=== PATIENT | male | born 1945 | race Caucasian/White ===

== ENCOUNTER 2017-07-23 12:18 | Emergency (ER) | payer MEDICARE, BC ==
[2017-07-23 12:34] VITALS: BP 141/83
[2017-07-23] MEDS ORDERED: DOXYcycline CAP(*) 100 MG PO ONE (13:26)
--- NOTE | 2017-07-23 13:28 | UC ---
Skin Complaint HPI - HPI Summary HPI Summary: 71 y/o male with tick bite to R arm x ? 30 hours. Paitent brought tick in with him- tick was hurt during removal, but consistent with deer nymph tick. redness around area, no prior lyme h/o. has surgery in 1 week, concerned about delay. - History of Current Complaint Chief Complaint: UCSkin Time Seen by Provider: 07/23/17 13:20 Stated Complaint: TICK BITE Hx Obtained From: Patient Onset/Duration: Sudden Onset, Lasting Hours Skin Exposure Onset/Duration: Days Ago Onset Severity: Mild Current Severity: None Pain Intensity: 0 Pain Scale Used: 0-10 Numeric - Allergy/Home Medications Allergies/Adverse Reactions: Allergies Allergy/AdvReac Type Severity Reaction Status Date / Time ciprofloxacin [From Cipro] Allergy Airway Verified 07/23/17 12:33 Obstruction Review of Systems Constitutional: Negative Skin: Rash Neurovascular: Negative Musculoskeletal: Negative Is Patient Immunocompromised?: No All Other Systems Reviewed And Are Negative: Yes PMH/Surg Hx/FS Hx/Imm Hx Previously Healthy: Yes - Surgical History Surgical History: Yes Surgery Procedure, Year, and Place: HERNIA REPAIR A CHILD. CYSTO, STENT 2011 [facility] [place]. hernia 2014, [facility] [place] - Social History Alcohol Use: Weekly Alcohol Amount: 2-3 WEEK Substance Use Type: None Smoking Status (MU): Never Smoked Tobacco Physical Exam Triage Information Reviewed: Yes Appearance: Well-Appearing, No Pain Distress, Well-Nourished Vital Signs: Initial Vital Signs Temp 98.0 F 07/23/17 12:30 Pulse 66 07/23/17 12:30 Resp 18 07/23/17 12:30 BP 141/83 07/23/17 12:30 Pulse Ox 98 07/23/17 12:30 Vital Signs Reviewed: Yes Eye Exam: Normal Neurological Exam: Normal Psychological Exam: Normal Skin: Positive: Other - Additional Comments small round pink/ erythematous area approximately 1.5cm on prox forearm. non- tender, no warmth, drainage. tick appeared full y removed, head intact. Course/Dx - Course Course Of Treatment: tick bite, doxy 1 dose given prophly. - Diagnoses Provider Diagnoses: tick bite, possible lyme exposure Discharge - Sign-Out/Discharge Documenting (check all that apply): Discharge - Discharge Plan Condition: Good Disposition: HOME Patient Education Materials: Doxycycline (By mouth), Lyme Disease (ED), Tick Bite (ED) Referrals: Joseph Garrett MD [Primary Care Provider] - Additional Instructions: - Continue to monitor area for redness , "bulls-eye" rash - Doxycycline given at - Billing Disposition and Condition Condition: GOOD Disposition: HOME
== END 2017-07-23 13:36 | disposition home or self-care (01) ==
LOC: UCEAST 12:18
DX: S50.861A Insect bite (nonvenomous) of right forearm, initial encounter (principal); W57.XXXA Bitten or stung by nonvenomous insect and other nonvenomous arthropods, initial encounter; Y93.9 Activity, unspecified; Y92.9 Unspecified place or not applicable; Z88.1 Allergy status to other antibiotic agents
CPT/HCPCS: 99212; A9270-GY; G0463

== ENCOUNTER 2017-07-25 06:35 | Day surgery (SDC) | payer MEDICARE, BC ==
--- NOTE | 2017-07-22 19:59 | HP ---
CC: Joseph Garrett MD, Family Medicine * ADMISSION HISTORY AND PHYSICAL: DATE OF ADMISSION: 07/25/17 ATTENDING SURGEON: Dr. Jt Black.* (DICTATED BY ALISON ANDRE) CHIEF COMPLAINT: Right inguinal hernia. HISTORY OF PRESENT ILLNESS: This is a generally healthy 71-year-old male who presents with a right inguinal hernia. This has been present for at least the past 10 years and has always been asymptomatic, though has gradually increased in size. He had undergone repair of a right inguinal hernia as a child and more recently in 2014, underwent open repair of a left inguinal hernia with mesh by Dr. Black. He was evaluated most recently by Dr. Black on 03/05/17, at which time exam confirmed the presence of a moderately large right inguinal hernia which is reducible though with a bit of difficulty, no evidence of recurrence on the left, well-healed incision on the right side consistent with prior hernia repair as a child. The patient has not had any symptoms to suggest incarceration or strangulation. Dr. Black has discussed with him the indications for surgery, the risks, benefits, and alternatives and we have reviewed the expected perioperative course. He would like to proceed as scheduled with open repair of right inguinal hernia with mesh. PAST MEDICAL HISTORY: Uric acid renal stones (followed regularly by Dr. Stover), erectile dysfunction, insomnia (primarily with traveling). PAST SURGICAL HISTORY: Previous surgeries include right inguinal herniorrhaphy as noted above, left inguinal herniorrhaphy with mesh in 2014, transurethral extraction of kidney stones in 2011 with stent placement and subsequent removal. CURRENT MEDICATIONS: 1. Allopurinol 300 mg once daily. 2. Potassium citrate extended release 10 mEq b.i.d. 3. Tamsulosin 0.4 mg daily. 4. Levitra 20 mg daily p.r.n. 5. Temazepam 15 mg q.h.s. p.r.n. insomnia. 6. The patient also has both Qvar and albuterol MDIs which he uses only with the congregation of upper respiratory infection. ALLERGIES: CIPRO (difficulty breathing). FAMILY HISTORY: Negative for anesthesia problems, bleeding or clotting disorders. SOCIAL HISTORY: The patient is . 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 He denies use of tobacco. He drinks 2 to 3 drinks per week. REVIEW OF SYSTEMS: General: No recent constitutional symptoms or acute illnesses. He is generally fairly active. Eyes: No recent changes in vision. Ears, Nose, Throat: No problems reported. Cardiovascular: Apparently history of rheumatic fever as a child and murmur, but not noted regularly on recent exams. Respiratory: He was treated for pneumonia 2 years ago and has been advised since then to utilize the above inhaled corticosteroid and bronchodilator p.r.n. for upper respiratory infections. He did use these approximately 1 month ago with resolution of his symptoms. GI: No problems reported. Colonoscopy done within the past 5 years with no problems reported at that time or in the interim. : As noted above, he does have some reduced stream and nocturia. He is followed by Dr. Stover regularly. Endocrine: No diabetes or thyroid dysfunction. Musculoskeletal, Neurological, Integument, Immunological: No additional problems reported. PHYSICAL EXAMINATION GENERAL: Well-nourished, well-developed male, in no acute distress. VITAL SIGNS: Height 5 feet 5.5 inches, weight 168 pounds, temperature 97.9, blood pressure 130/72, pulse 66, respirations 18. HEENT: Pupils equal, round, and reactive. EOMs intact. No conjunctival pallor. Oropharynx: Teeth in good repair. No intraoral lesions. NECK: No lymphadenopathy, thyromegaly, or masses. LUNGS: Clear to auscultation. No rales or wheezes. HEART: Regular rate and rhythm. No murmur appreciated on today's exam. ABDOMEN: Soft, nontender to palpation. No palpable masses or organomegaly. He does have diastasis recti. Hernia is not reexamined (see above per Dr. Black's exam. No interval problems reported). GENITALIA: Not examined. RECTAL: Not done. BACK: No spinous process or CVA tenderness. EXTREMITIES: No edema. NEUROLOGICAL: Grossly intact. SKIN: Warm and dry. No suspicious rashes or lesions noted. IMPRESSION: Right inguinal hernia. PLAN: Open repair right inguinal hernia with mesh. ALISON ANDRE [id number]/[facility] #: [id number] [facility] CAN[facility]ER CENTERLinda
[~2017-07-25 06:35] MED LIST: Buffered Lidocaine 0.9% SYRIN* 5 ML/SYR SYRINGE INTRADERM ONE
[2017-07-25] MEDS ORDERED: Buffered Lidocaine 0.9% SYRIN* 5 ML/SYR SYRINGE ONE (07:09)
[2017-07-25] MEDS ORDERED: ceFAZolin 2 GM PREMIX (*) 2 GM/50 ML BAG IVPB ONE (07:09)
[2017-07-25] MEDS ORDERED: Midazolam* 1 MG/ML 2 ML VIAL (2 MG) ONE ×3 (08:09→09:00)
[2017-07-25] MEDS ORDERED: fentaNYL* 50 MCG/ML 2 ML VIAL (100 MCG VIAL) ONE ×2 (08:09→09:10)
[2017-07-25] MEDS ORDERED: Lidocaine 1% MPF wEPI 200,000* 30 ML SDV ONE (08:49)
[2017-07-25] MEDS ORDERED: Bupivacaine 0.25% SDV* 30 ML ONE (08:50)
[2017-07-25] MEDS ORDERED: Propofol* 10 MG/ML 20 ML BTL IV PUSH ONE (08:59)
[2017-07-25] MEDS ORDERED: Ketorolac INJ* 30 MG/ML 1 ML VIAL ONE (08:59)
[2017-07-25] MEDS ORDERED: Dexamethasone IV* 4 MG/ML 1 ML (4 MG) ONE (08:59)
[2017-07-25] MEDS ORDERED: Lidocaine 2% PF * 5 ML VIAL ONE (09:01)
[2017-07-25] MEDS ORDERED: Ondansetron INJ* 2 MG/ML VIAL IV PRN (09:27)
[2017-07-25] MEDS ORDERED: HYDROcodone/ACETAMIN 5-325 MG* 1 TAB PO PRN ×2 (09:27)
[2017-07-25] MEDS ORDERED: Acetaminophen TAB* 325 MG PO PRN (09:27)
[2017-07-25] MEDS ORDERED: Naloxone* 0.4 MG/ML 1 ML VIAL IV PRN (09:27)
[2017-07-25] MEDS ORDERED: DiMENhydriNATE IV* 50 MG/ML VIAL IV PUSH PRN (09:27)
[2017-07-25] MEDS ORDERED: PROCHLORPERAZINE INJ 5 MG/ML 2 ML VIAL IV PRN (09:27)
[2017-07-25 11:36] VITALS: BP 141/79
--- NOTE | 2017-07-25 14:25 | OP ---
CC: Jt Black MD; Dr. Garrett. OPERATIVE REPORT: DATE OF OPERATION: 07/25/17 DATE OF : 45 SURGEON: Jt Black MD WET MACHINE OPERATOR: ALISON Multani student. ANESTHESIOLOGIST: Dr. Garces. ANESTHESIA: LMAC anesthesia. PRE-OP DIAGNOSIS: Right inguinal hernia. POST-OP DIAGNOSIS: Right inguinal hernia. OPERATIVE PROCEDURE: Open repair, right inguinal hernia (recurrent) with mesh. DESCRIPTION OF PROCEDURE: Patient was supine on the operating table. After adequate intravenous sed ation, compression stockings, Valentino Hugger warmer, and intravenous antibiotics, the right groin was pr epped with antiseptic, draped in a sterile fashion. Local infiltrative anesthesia was administered. Approximately 3- inch incision was created and carried down through the scar tissue until the ecommerce marketing specialist al oblique was opened in the direction of it's fibers. Cord structures were encircled with a [place] drain, tented upward. There was a fairly large direct space hernia. This was dissected free and th e transversalis fascia opened and the preperitoneal plane developed. A Prolene hernia system [facility] was put into place. The anterior leaf was sutured to Jaret's ligament and up under the transver se abdominis using 2-0 Vicryl. The external leaf was sutured at the tubercle at the transverse abdom inis at the inguinal ligament. Tails were split, brought around the cord structures, tacked down lat erally as well. External oblique was closed over top with 2-0 Vicryl, Karrie's with 3-0 Vicryl, skin with 4- 0 Prolene, followed by a sterile dressing. He tolerated the procedure well, was awakened an d brought to Recovery in good condition. No complications. No drains. There were no pathologic spec imens. Sponge and instrument counts were correct. Estimated blood 10 mL. [id number]/[facility] #: [id number]
== END 2017-07-25 11:36 | disposition home or self-care (01) ==
LOC: OR 06:35
PROVIDERS: ATTEND Surgery
DX: K40.91 Unilateral inguinal hernia, without obstruction or gangrene, recurrent (principal); G47.00 Insomnia, unspecified; M48.02 Spinal stenosis, cervical region
CPT/HCPCS: J0690; J1100; J1885; J2001; J2250; J2704; J3010